=== PATIENT | male | born 1955 | race Caucasian/White ===

== ENCOUNTER 2016-08-23 17:53 | Outpatient (CLI) | payer BC ==
--- NOTE | 2016-08-23 18:31 | DIAGNOSTIC IMAGING REPORT ---
PROCEDURE: XR CHEST 2 VIEW INDICATION: ASTHMATIC BRONCHITIS TECHNIQUE: Two views. COMPARISON: None. FINDINGS: The cardiomediastinal contour and central vasculature are within normal limits. The lungs are clear without focal consolidation, pleural effusion, or pneumothorax. The visualized osseous structures are intact. Degenerative osteophytosis throughout the thoracic spine. IMPRESSION: 1. No acute cardiopulmonary disease.
== END 2016-08-23 23:00 ==
LOC: XR SRH 17:53
DX: J45.902 Unspecified asthma with status asthmaticus (principal)